=== PATIENT | female | born 1990 | race Two or more races ===

== ENCOUNTER 2017-05-05 14:58 | Emergency (ER) | payer MEDICAID, MEDICARE ==
[~2017-05-05] VITALS: Ht 149.9 cm; Wt 73.0 kg
[2017-05-05 15:11] VITALS: BP 126/81
== END 2017-05-05 21:38 | disposition left against medical advice (07) ==
LOC: ER 15:44
DX: H92.09 Otalgia, unspecified ear (principal); Z53.21 Procedure and treatment not carried out due to patient leaving prior to being seen by health care provider

== ENCOUNTER 2018-06-23 20:48 | Observation (INO) | payer MEDICARE ==
[~2018-06-23] VITALS: Ht 149.9 cm; Wt 80.3 kg
[2018-06-23] MEDS ORDERED: PREN-52 MT (22:07)
== END 2018-06-23 23:28 | disposition home or self-care (01) ==
LOC: 8 EST LDRP 20:48
PROVIDERS: ADMIT Obstetrics & Gynecology; ATTEND Obstetrics & Gynecology
DX: O36.8120 Decreased fetal movements, second trimester, not applicable or unspecified (principal); Z3A.23 23 weeks gestation of pregnancy
CPT/HCPCS: G0378 ×2; 99281

== ENCOUNTER 2018-06-23 22:27 | Emergency (ER) | payer MEDICARE ==
[~2018-06-23 22:27] MED LIST: PREN-52 MT
== END 2018-06-24 | disposition left against medical advice (07) ==
LOC: ER 22:27
DX: Z53.21 Procedure and treatment not carried out due to patient leaving prior to being seen by health care provider (principal)
CPT/HCPCS: 99281

== ENCOUNTER 2019-10-03 10:08 | Emergency (ER) | payer SELFPAY ==
[~2019-10-03] VITALS: Ht 149.9 cm; Wt 71.0 kg
[2019-10-03 10:29] VITALS: BP 110/74
== END 2019-10-03 11:10 | disposition left against medical advice (07) ==
LOC: ER 10:08
DX: R10.84 Generalized abdominal pain (principal); N93.9 Abnormal uterine and vaginal bleeding, unspecified
CPT/HCPCS: 99281